=== PATIENT | male | born 1985 | race Caucasian/White ===

== ENCOUNTER 2017-12-02 20:45 | Emergency (ER) | payer MEDICAID ==
[2017-12-02] MEDS: LIDOCAINE 1% (MDV) 20 ML INJ SC (21:56)
[2017-12-02] MEDS: LIDOCAINE 1% (MDV) 10 ML INJ INFIL (21:59)
[2017-12-02] MEDS: HYDROCODONE/APAP (5/325) TAB PO (22:00)
[2017-12-02] MEDS: CEPHALEXIN 500 MG CAP PO (22:00)
[2017-12-02] MEDS: DIPHTH/TET/ACEL PERTUSS (ADULT) 0.5 ML VIAL IM* (22:01)
[2017-12-02] MEDS: TRIMETHOPRIM/SULFAMETHOX (DS) TAB PO (22:01)
== END 2017-12-02 23:39 | disposition home or self-care (01) ==
LOC: FTE 20:45
DX: L02.611 Cutaneous abscess of right foot (principal); L03.031 Cellulitis of right toe; Z23 Encounter for immunization
CPT/HCPCS: 10061; 82962; 90471; 90715; 99284-25

== ENCOUNTER 2017-12-05 08:48 | Emergency (ER) | payer MEDICAID ==
[2017-12-05] MEDS: CLINDAMYCIN 300 MG INJ IM (10:04)
== END 2017-12-05 10:20 | disposition home or self-care (01) ==
LOC: FTE 08:48
DX: L03.031 Cellulitis of right toe (principal)
CPT/HCPCS: 96372; 99284-25